=== PATIENT | male | born 1950 | race Caucasian/White ===

== ENCOUNTER → 2024-06-23 07:10 | Outpatient (REF) | payer MEDICARE, OTHER, SELFPAY | LOC: HWRAD 07:10 | PROVIDERS: ATTENDING PHYSICIAN Family Medicine; REFERRING PHYSICIAN Internal Medicine Cardiovascular Disease | DX: E03.9 Hypothyroidism, unspecified (principal); R63.4 Abnormal weight loss | CPT/HCPCS: 71046; 76536 ==

== ENCOUNTER → 2024-12-26 09:52 | Outpatient (REF) | payer MEDICARE, OTHER, SELFPAY | LOC: HWRAD 09:52 | PROVIDERS: ATTENDING PHYSICIAN Family Medicine | DX: J01.10 Acute frontal sinusitis, unspecified (principal) | CPT/HCPCS: 70486 ==

== ENCOUNTER → 2025-07-25 09:09 | Outpatient (REF) | payer MEDICARE, OTHER, SELFPAY | LOC: HWRAD 09:09 | PROVIDERS: ATTENDING PHYSICIAN Internal Medicine Cardiovascular Disease; FAMILY PHYSICIAN Family Medicine | DX: I25.10 Atherosclerotic heart disease of native coronary artery without angina pectoris (principal) | CPT/HCPCS: 75571 ==